=== PATIENT | male | born 1945 | race Two or more races ===

== ENCOUNTER 2017-10-29 22:02 | Emergency (ER) | payer OTHER ==
[~2017-10-29] VITALS: Ht 182.9 cm; Wt 99.8 kg
[2017-10-29 22:02] VITALS: BP 99/34
[2017-10-29] MEDS ORDERED: EPINEPHrine HCL 1 MG/10 ML SYRG IV ONE (22:09)
[2017-10-29] MEDS ORDERED: SODIUM BICARBONATE 8.4% INJ 50ML SYRINGE IV ONE (22:09)
[2017-10-29] MEDS ORDERED: CALCIUM CHLOR(10%) 100MG/ML 10ML SYRINGE IV ONE (22:09)
== END 2017-10-30 01:41 | disposition expired ==
LOC: EDBD 22:02 → ER 22:08
DX: I46.9 Cardiac arrest, cause unspecified (principal); I10 Essential (primary) hypertension; E11.9 Type 2 diabetes mellitus without complications; Z85.118 Personal history of other malignant neoplasm of bronchus and lung
CPT/HCPCS: 92950; 99285; J0171